=== PATIENT | female | born 1995 | race Caucasian/White ===

== ENCOUNTER 2017-01-14 16:01 | Emergency (ER) | payer OTHER ==
--- NOTE | 2017-01-14 16:58 | ED Physician Documentation ---
PD HPI LOWER EXT INJURY - Stated complaint Stated Complaint: ANKLE INJURY - Chief complaint Chief Complaint: Ext Problem - History obtained from History obtained from: Patient - History of Present Illness PD HPI LOW EXT INJURY LOCATION: Left, Ankle Type of injury: Fall, Twist Where injury occurred: Home Timing - onset: Today Timing - duration: Hours Timing - details: Abrupt onset, Still present Improved by: Rest, Ice, Immobilization Worsened by: Moving, Palpating Associated symptoms: Swelling. No: Weakness, Numbness, Tingling Contributing factors: No: Anticoagulated Similar symptoms before: Has not had sx before Recently seen: Not recently seen - Additional information Additional information: 21-year-old female walked out of a sliding glass door and went down to walk down the steps and tripped over a pair shoes twist her ankle and abraded her knee. She was able to get into the emergency department with the help of another person holding her up. She is not able to bear weight and has a lot of swelling to the lateral ankle. Review of Systems Constitutional: denies: Fever Respiratory: denies: Cough GI: denies: Vomiting Musculoskeletal: reports: Joint pain, Joint swelling, Pain with weight bearing. denies: Neck pain, Back pain Neurologic: denies: Generalized weakness, Focal weakness, Numbness PD PAST MEDICAL HISTORY - Allergies Allergies/Adverse Reactions: Allergies Allergy/AdvReac Type Severity Reaction Status Date / Time No Known Drug Allergies Allergy Verified 01/14/17 16:10 PD ED PE NORMAL - Vitals Vital signs reviewed: Yes (Normal) - General General: No acute distress, Well developed/nourished - HEENT HEENT: Atraumatic, PERRL, EOMI - Respiratory Respiratory: No respiratory distress - Derm Derm: Normal color, Warm and dry, No rash - Extremities Extremities: No deformity, Other (There is swelling and point tenderness over the lateral malleolus on the left ankle the medial malleolus is without tenderness the proximal fifth is without tenderness there is no tenderness to the proximal fibula. Distal neurovascular components are intact.) - Neuro Neuro: Alert and oriented X 3, No motor deficit, No sensory deficit, Normal speech - Psych Psych: Normal mood, Normal affect Results - Vitals Vitals: Vital Signs - 24 hr 01/14/17 16:06 Temperature 36.4 C L Heart Rate 89 Respiratory 18 Rate Blood Pressure 128/75 O2 Saturation 100 Oxygen O2 Source Room air - Rads (name of study) left ankle Radiology: Prelim report reviewed (Impression: 1. No fracture. 2. Small joint effusio nwith soft tissue swelling along the lateral and anterior aspect fo yaritza ankle si concerning fro soft tissue injury) Procedures - Splint (location) left ankle Splint applied by: Tech Type of splint: Ankle airsplint Other: Patient tolerated well, No complications, Neurovascular intact, Good alignment, Crutches provided PD MEDICAL DECISION MAKING - ED course Complexity details: reviewed results, re-evaluated patient, considered differential, d/w patient ED course: 21-year-old female with a sprained left ankle was placed into an ankle stirrup and onto crutches. Departure - Departure Disposition: 01 Home, Self Care Clinical Impression: Ankle sprain Qualifiers: Encounter type: initial encounter Involved ligament of ankle: calcaneofibular ligament Laterality: left Qualified Code(s): S93.412A - Sprain of calcaneofibular ligament of left ankle, initial encounter Condition: Stable Instructions: ED Sprain Ankle W X Ray Follow-Up: Your, doctor [Other]
--- NOTE | 2017-01-14 17:04 | XRAY Preliminary Report ---
Exam: XR Ankle 3 View LT IMPRESSION: 1. No fracture. 2. Small joint effusion with soft tissue swelling along the lateral and anterior aspect of the ankle is concerning for soft tissue injury. [facility] SITE ID: [id number]
--- NOTE | 2017-01-14 17:07 | XRAY Report ---
EXAM: LEFT ANKLE RADIOGRAPHY EXAM DATE: 01/14/2017 04:43 PM. CLINICAL HISTORY: Injury. COMPARISON: None. TECHNIQUE: 3 views. FINDINGS: Bones: Normal. No fractures or bone lesions. Joints: Small joint effusion. Soft Tissues: Soft tissue swelling along the lateral aspect and anterior aspect of the ankle. IMPRESSION: 1. No fracture. 2. Small joint effusion with soft tissue swelling along the lateral and anterior aspect of the ankle is concerning for soft tissue injury. [facility] Referring Provider Line: [phone] SITE ID: [id number]
[2017-01-14 17:24] VITALS: BP 142/77
== END 2017-01-14 17:38 | disposition home or self-care (01) ==
LOC: ED 16:01
DX: S93.412A Sprain of calcaneofibular ligament of left ankle, initial encounter (principal); S80.212A Abrasion, left knee, initial encounter; W01.0XXA Fall on same level from slipping, tripping and stumbling without subsequent striking against object, initial encounter; Y93.01 Activity, walking, marching and hiking; Y92.019 Unspecified place in single-family (private) house as the place of occurrence of the external cause
CPT/HCPCS: 99283